=== PATIENT | male | born 1975 | race Caucasian/White ===

== ENCOUNTER 2018-03-14 06:50 | Emergency (ER) | payer OTHER ==
[~2018-03-14] VITALS: Ht 177.8 cm; Wt 73.9 kg
[2018-03-14 06:56] VITALS: Ht 177.8 cm; Wt 73.9 kg
[2018-03-14 08:19] LABS: BASOPHIL % 0.7 % (0-2); PLATELET COUNT 197 x10^3mcL (130-400); RED CELL DISTRIBUTION WIDTH 14.1 % (11.5-14.5)
[2018-03-14 08:49] LABS: CALCIUM 9.1 mg/dL (8.5-10.1); CARBON DIOXIDE 27.9 mmol/L (21-32); CHLORIDE SERUM 108 mmol/L (98-107); CREATININE SERUM 0.8 mg/dL (0.7-1.3); GFR1 > 60 mL/min; GLUCOSE SERUM 86 mg/dL (74-106); POTASSIUM SERUM 4.1 mmol/L (3.5-5.1); SODIUM SERUM 146 mmol/L (136-145)
[2018-03-14 09:16] VITALS: BP 130/87
== END 2018-03-14 09:18 | disposition home or self-care (01) ==
LOC: ED 06:50
PROVIDERS: Emergency Medicine
DX: S20.212A Contusion of left front wall of thorax, initial encounter (principal); S30.1XXA Contusion of abdominal wall, initial encounter; V49.9XXA Car occupant (driver) (passenger) injured in unspecified traffic accident, initial encounter; Y93.89 Activity, other specified; Y92.89 Other specified places as the place of occurrence of the external cause; Y99.8 Other external cause status
CPT/HCPCS: 36415

== ENCOUNTER 2018-04-17 08:33 | Emergency (ER) | payer MEDICAID ==
[~2018-04-17] VITALS: Ht 177.8 cm; Wt 81.2 kg
[2018-04-17 08:39] VITALS: Ht 177.8 cm; Wt 81.2 kg
[2018-04-17 09:53] VITALS: BP 165/113
== END 2018-04-17 09:53 | disposition home or self-care (01) ==
LOC: ED 08:33
DX: R51 Headache (principal); I10 Essential (primary) hypertension